=== PATIENT | female | born 1995 | race Caucasian/White ===

== ENCOUNTER 2022-05-14 10:58 | Emergency (ER) | payer MEDICAID ==
[~2022-05-14] VITALS: Ht 154.9 cm; Wt 97.0 kg
[2022-05-14 11:40] VITALS: BP 155/101
[2022-05-14] MEDS ORDERED: KETOROLAC 30MG/ML VIAL IV NR (15:53)
[2022-05-14] MEDS ORDERED: ACETAMINOPHEN 325MG TABLET PO NR (15:53)
[2022-05-14] MEDS ORDERED: SODIUM CHLORIDE 0.9% 1,000 ML IV ONE (16:00)
[2022-05-14] MEDS ORDERED: METOCLOPRAMIDE HCL 10MG/2ML VIAL IV NR (16:00)
[2022-05-14] MEDS ORDERED: DIPHENHYDRAMINE 50MG/ML VIAL IV NR (16:00)
[2022-05-14] MEDS ORDERED: DEXAMETHASONE 10 MG/ML VIAL IV NR (16:00)
[2022-05-14] MEDS ORDERED: KETOROLAC 15MG/ML VIAL IV NR (16:08)
[2022-05-14 16:29] LABS: BASOPHILS % 0.9 % (0.0-2.0); EOSINOPHILS % 1.2 % (0.0-5.0); HEMATOCRIT. 40.6 % (36.0-48.0); HEMOGLOBIN. 13.9 g/dL (12.0-16.0); MEAN CORPUSCULAR HEMOGLOBIN 27.9 pg (28.0-32.0); MEAN CORPUSCULAR VOLUME 81.6 fL (81.0-99.0); MEAN PLATELET VOLUME 8.5 fl (7.4-10.4); NEUTROPHILS % 66.9 % (40.0-76.0); PLATELET 282 x1000/uL (130-400); RED BLOOD CELL COUNT 4.98 mill/uL (4.2-5.4)
[2022-05-14 16:35] LABS: CHLORIDE 106 mEq/L (98-107)
[2022-05-14 16:37] LABS: PROTHROMBIN TIME 10.5 sec (9.6-11.0)
[2022-05-14 16:45] LABS: ETHANOL BLOOD < 10 mg/dL
[2022-05-14 17:23] LABS: HCG SCREEN NEGATIVE
[2022-05-14] MEDS ORDERED: METO-293 MT (17:24)
[2022-05-14] MEDS ORDERED: CYCL10TA21 MT (17:24)
[2022-05-14] MEDS ORDERED: IBUP-2029 MT (17:24)
[2022-05-14 18:04] LABS: CLARITY URINE CLEAR (CLEAR); COLOR URINE YELLOW (YELLOW); KETONES URINE NEGATIVE (NEGATIVE); LEUKOCYTE ESTERASE URINE NEGATIVE (NEGATIVE); NITRITE URINE NEGATIVE (NEGATIVE); OCCULT BLOOD URINE NEGATIVE (NEGATIVE); PROTEIN URINE NEGATIVE (NEGATIVE); SPECIFIC GRAVITY URINE 1.014 (1.005-1.030)
[2022-05-14 18:23] LABS: *AMPHETAMINES SCREEN URINE NEGATIVE (NEGATIVE); *BARBITURATES SCREEN URINE NEGATIVE (NEGATIVE); *BENZODIAZEPINES SCREEN URINE NEGATIVE (NEGATIVE); *COCAINE SCREEN URINE NEGATIVE (NEGATIVE); METHADONE URINE SCREEN NEGATIVE (NEGATIVE); OPIATES URINE SCREEN NEGATIVE (NEGATIVE); PHENCYCLIDINE URINE SCREEN NEGATIVE (NEGATIVE)
[2022-05-14 18:54] LABS: CANNABINOID URINE SCREEN PRESUMTIVE POSITIVE (NEGATIVE)
== END 2022-05-14 17:59 | disposition home or self-care (01) ==
LOC: ER 10:58
DX: S16.1XXA Strain of muscle, fascia and tendon at neck level, initial encounter (principal); G44.209 Tension-type headache, unspecified, not intractable; R03.0 Elevated blood-pressure reading, without diagnosis of hypertension; Z98.890 Other specified postprocedural states; X58.XXXA Exposure to other specified factors, initial encounter; Y93.89 Activity, other specified; Y92.018 Other place in single-family (private) house as the place of occurrence of the external cause
CPT/HCPCS: 36415; 80053; 80305; 80320; 81003; 81025; 84703; 85025; 85610; 96374; 96375; 99284; J1100; J1200; J1885; J2765; G0480